=== PATIENT | male | born 1995 | race Caucasian/White ===

== ENCOUNTER 2017-12-16 20:15 | Emergency (ER) | payer SELFPAY ==
[~2017-12-16] VITALS: Ht 160 cm; Wt 65.0 kg
[2017-12-16 21:13] VITALS: BP 160/81
== END 2017-12-16 22:46 | disposition home or self-care (01) ==
LOC: ER 20:15
DX: L23.9 Allergic contact dermatitis, unspecified cause (principal); Z91.013 Allergy to seafood; Z98.890 Other specified postprocedural states
CPT/HCPCS: 99283